=== PATIENT | female | born 1965 | race American Indian/Alaskan Native ===

== ENCOUNTER 2017-01-25 14:20 | Outpatient (CLI) | payer BC ==
--- NOTE | 2017-01-25 16:26 | Mammography Report ---
BILATERAL MAMMOGRAM: FINDINGS: There are scattered fibroglandular densities (approximately 25%-50% glandular). No mass, distortion, suspicious calcification, or skin change is seen. No significant change identified compared to exams dating back to 2015. CAD was utilized. IMPRESSION: Negative mammogram. There is no mammographic evidence of malignancy. RECOMMENDATION: Follow-up per ACS guidelines. BI-RADS CATEGORY: 1 = Negative ACR BI-RADS MAMMOGRAPHIC CODES: 0 = Needs additional imaging evaluation; 1 = Negative; 2 = Benign; 3 = Probably benign; 4 = Suspicious; 5 = Malignant; 6 = Known biopsy-proven malignancy COMMENT: 1. Dense breast tissue, i.e., adenosis, fibrocystic changes, etc., may obscure an underlying neoplasm. 2. Approximately 10% of cancers are not detected with mammography. 3. A negative mammography report should not delay biopsy if a clinically suspicious mass is present. COMMENT: Patient follow-up letters are generated in [employer].
== END 2017-01-25 14:21 | disposition home or self-care (01) ==
LOC: SPVWC 14:20
PROVIDERS: ATTEND General Practice
DX: Z12.31 Encounter for screening mammogram for malignant neoplasm of breast (principal)
CPT/HCPCS: 77067; G0202

== ENCOUNTER 2018-03-01 09:41 | Outpatient (CLI) | payer BC ==
--- NOTE | 2018-03-01 14:26 | Mammography Report ---
BILATERAL DIGITAL SCREENING MAMMOGRAM with CAD: 03/01/18 09:41:00 CLINICAL: Routine screening. COMPARISON: 09/27/16 and mammograms going back to 2011. FINDINGS: The breasts are mostly fatty with a few bilateral scattered fibroglandular densities.No mass, architectural distortion or suspicious calcifications. IMPRESSION: No mammographic evidence of malignancy. BI-RADS CATEGORY: 1 -- Negative RECOMMENDATION: Routine mammographic screening in one year.
== END 2018-03-01 09:42 | disposition home or self-care (01) ==
LOC: SPVWC 09:41
PROVIDERS: ATTEND General Practice
DX: Z12.31 Encounter for screening mammogram for malignant neoplasm of breast (principal); Z88.0 Allergy status to penicillin; Z88.8 Allergy status to other drugs, medicaments and biological substances
CPT/HCPCS: 77067

== ENCOUNTER 2018-08-25 10:13 | Outpatient (CLI) | payer OTHER ==
--- NOTE | 2018-08-25 11:37 | XRay Report ---
AP AND LATERAL CERVICAL SPINE: History: Pain. The vertebral bodies are well mineralized and normal in alignment and vertebral height with well preserved interspace distances. Minimal anterior spurring is noted at C5-6. The visualized portions of the posterior elements are normal. IMPRESSION: Essentially unremarkable cervical spine films. Minimal anterior spurring at C5-6.
--- NOTE | 2018-08-25 11:37 | XRay Report ---
LUMBOSACRAL SPINE, 3 VIEWS: History: Pain Findings: The vertebral bodies, disk spaces and posterior elements are intact. No compression deformity or malalignment. The SI joints are symmetric and unremarkable. Impression: Lumbar spine within normal limits.
== END 2018-08-25 10:14 | disposition home or self-care (01) ==
LOC: XRAY 10:13
PROVIDERS: ATTEND Internal Medicine
DX: Z02.71 Encounter for disability determination (principal); M54.2 Cervicalgia
CPT/HCPCS: 72040; 72100

== ENCOUNTER 2021-03-24 10:13 | Outpatient (CLI) | payer BC | END 2021-03-24 10:14 | disposition home or self-care (01) | LOC: SPVWC 10:13 | PROVIDERS: ATTEND Student in an Organized Health Care Education/Training Program | DX: Z12.31 Encounter for screening mammogram for malignant neoplasm of breast (principal) | CPT/HCPCS: 77067 ==

== ENCOUNTER 2022-03-26 08:23 | Outpatient (CLI) | payer BC ==
--- NOTE | 2022-03-27 09:59 | Mammography Report ---
DIGITAL SCREENING MAMMOGRAM WITH CAD, 03/26/2022 CLINICAL INFORMATION / INDICATION: Routine screening mammography. SCREENING TECHNIQUE: Digital bilateral 2D mammography was obtained in the craniocaudal and mediolateral obliqu e projections. This examination was interpreted with the benefit of Computer-Aided Detection analysis . COMPARISON: 03/24/2021 and 01/30/2020 FINDINGS: Breast Density: There are scattered areas of fibroglandular density. No dominant mass, suspicious calcifications, or architectural distortion in either breast. IMPRESSION: No mammographic evidence of malignancy. Follow up recommendation: Routine yearly screening mammogram. BI-RADS Category 1: NEGATIVE A "normal" or negative report should not discourage follow up or biopsy of a clinically significant f inding. A written summary of these findings will be mailed to the patient. The patient will be entered into a mammography reporting system which will generate a reminder letter for the patient's next appointmen t at the appropriate interval. The [employer] recommends yearly mammograms starting at age 40 and continuing as l katie as a woman is in good health. Breast MRI is recommended for women with an approximate 20-25% or greater lifetime risk of breast cancer, including women with a strong family history of breast or ova tj cancer or who have been treated for Hodgkin's disease. Signer Name: Luis M Jaimes MD Signed: 03/27/2022 9:55 AM Workstation Name: [id number]
== END 2022-03-26 08:24 | disposition home or self-care (01) ==
LOC: MAMMO 08:23
PROVIDERS: ATTEND Student in an Organized Health Care Education/Training Program
DX: Z12.31 Encounter for screening mammogram for malignant neoplasm of breast (principal)
CPT/HCPCS: 77067